=== PATIENT | female | born 1960 | race Caucasian/White ===

== ENCOUNTER 2024-07-23 15:18 | Emergency (ER) | payer MEDICAID, OTHER ==
[~2024-07-23] VITALS: Ht 175.3 cm; Wt 62.0 kg
[2024-07-23 15:30] VITALS: PULSE 76; RESP 18; O2SAT 98
--- NOTE | 2024-07-23 15:35 | ED.PDOC ---
History of Present Illness HPI Comments 64-year-old female brought by paramedics because of altered level of consciousness noticed by her significant other. Significant other last seen her normal 20 minutes prior to paramedics arrival. When paramedics arrived she was unconscious with pinpoint pupil. She was given intranasal Narcan for which she responded. Patient does have a history of ovarian cancer. She does not remember the event. She denies use of drugs. Other than ovarian she does have a history of hypotension asthma. Her blood pressure on arrival was 157/110. With a normal heart rate. Denies chest pain shortness a breath. She does state that she has headache confusion. Denies any other symptoms. Chief Complaint: ALOC Time Seen by MD: 15:24 Reviewed Notes: Nurses Notes, Medications, Allergies Allergies: Coded Allergies: Penicillins (Verified Allergy, Unknown, 07/23/24) Information Source: Patient, Emergency Med Personnel Mode of Arrival: EMS Severity: Moderate Timing: Minutes Duration: Since onset Past Medical History PAST MEDICAL HISTORY: Asthma, HTN Surgical History: Denies all surgeries ROLL INSPECTOR History: No Pertinent ROLL INSPECTOR History Social History Smoker: Non-Smoker Alcohol: Denies ETOH Use Drugs: Denies Drug Use Constitutional: denies: chills, diaphoresis, fatigue, fever, malaise, sweats, weakness, others EENTM: denies: blurred vision, double vision, ear bleeding, ear discharge, ear drainage, ear pain, ear ringing, eye pain, eye redness, hearing loss, mouth pain, mouth swelling, nasal discharge, nose bleeding, nose congestion, nose pain, photophobia, tearing, throat pain, throat swelling, voice changes, others Respiratory: denies: cough, hemoptysis, orthopnea, SOB at rest, shortness of breath, SOB with excertion, stridor, wheezing, others Cardiovascular: denies: chest pain, dizzy spells, diaphoresis, Dyspnea on exertion, edema, irregular heart beat, left arm pain, lightheadedness, palpitations, PND, syncope, others Gastrointestinal: denies: abdomen distended, abdominal pain, blood streaked bowels, constipated, diarrhea, dysphagia, difficulty swallowing, hematemesis, melena, nausea, poor appetite, poor fluid intake, rectal bleeding, rectal pain, vomiting, others Genitourinary: denies: abnormal vagina bleeding, burning, dyspareunia, dysuria, flank pain, frequency, hematuria, incontinence, pain, , vagina discharge, urgency, others Neurological: reports: headache; denies: dizziness, fainting, left sided numbness, left sided weakness, numbness, paresthesia, pre-existing deficit, right sided numbness, right sided weakness, seizure, speech problems, tingling, tremors, weakness, others Musculoskeletal: denies: back pain, gout, joint pain, joint swelling, muscle pain, muscle stiffness, neck pain, others Integumetry: denies: bruises, change in color, change in hair/nails, dryness, laceration, lesions, lumps, rash, wounds, others Allergic/Immunocompromised: denies: Difficulty Healing, Frequent Infections, Hives, Itching, others Hematologic/Lymphatic: denies: anemia, blood clots, easy bleeding, easy bruising, swollen glands, others Endocrine: denies: excessive hunger, excessive sweating, excessive thirst, excessive urination, flushing, intolerance to cold, intolerance to heat, unexplained weight gain, unexplained weight loss, others Psychiatric: denies: anxiety, bipolar disorder, depression, hopeless, panic disorder, schizophrenia, sleepless, suicidal, others Physical Exam General Appearance: Moderate Distress HEENT: Normal ENT Inspection, Pharynx Normal, TMs Normal Neck: Full Range of Motion, Non-Tender, Normal, Normal Inspection Respiratory: Chest Non-Tender, Lungs Clear, No Accessory Muscle Use, No Respiratory Distress, Normal Breath Sounds Cardiovascular: No Edema, No JVD, No Murmur, No Gallop, Normal Peripheral Pulses, Regular Rate/Rhythm Breast Exam: Deferred Gastrointestinal: No Organomegaly, Non Tender, No Pulsatile Mass, Normal Bowel Sounds, Soft Genitalia: Deferred Pelvic: Deferred Rectal: Deferred Extremities: Normal inspection, No pedal edema Musculoskeletal : Apperance: Normal Neurologic: Alert Cerebellar Function: NOT DONE Reflexes: NOT DONE Skin: Dry, Normal Color, Warm Peripheral Pulses: 3+ Radial (R), 3+ Radial (L) Lymphatic: No Adenopathy Was a procedure done? Was a procedure done?: No Differential Dx Considerations may include: Metabolic encephalopathy Electrolyte imbalance X-Ray, Labs, Meds, VS Vital Signs Date Time Temp Pulse Resp B/P (MAP) Pulse Ox O2 Delivery O2 Flow Rate FiO2 07/23/24 15:30 76 18 98 Room Air* 0 21 07/23/24 15:27 97.9 61 16 145/99 (114) 97 97.9 07/23/24 15:27 97.9 61 16 145/99 (114) 97 07/23/24 15:22 58 Lab Test 07/23/24 15:45 Range/Units White Blood Count 7.5 4.4-10.8 10^3/uL Red Blood Count 5.17 4.0-5.20 10^6/uL Hemoglobin 16.5 H 12.2-16.2 g/dL Hematocrit 47.8 H 36.0-46.0 % Mean Corpuscular Volume 92.4 80.0-100.0 fL Mean Corpuscular Hemoglobin 31.9 28.0-32.0 pg Mean Corpuscular Hemoglobin Concent 34.5 32.0-36.0 g/dL Red Cell Distribution Width 13.5 11.8-14.3 % Platelet Count 320 140-450 10^3/uL Mean Platelet Volume 7.9 6.9-10.8 fL Neutrophils (%) (Auto) 62.5 37.0-80.0 % Lymphocytes (%) (Auto) 26.6 10.0-50.0 % Monocytes (%) (Auto) 8.7 0.0-12.0 % Eosinophils (%) (Auto) 1.7 0.0-7.0 % Basophils (%) (Auto) 0.5 0.0-2.0 % Neutrophils # (Auto) 4.7 1.6-8.6 10 ^3/uL Lymphocytes # (Auto) 2.0 0.4-5.4 10 ^3/uL Monocytes # (Auto) 0.6 0-1.3 10 ^3/uL Eosinophils # (Auto) 0.1 0-0.8 10 ^3/uL Basophils # (Auto) 0 0-0.2 10 ^3/uL Nucleated Red Blood Cells 0.2 % Sodium Level 140 136-145 mmol/L Potassium Level 3.5 3.5-5.1 mmol/L Chloride Level 105 98-107 mmol/L Carbon Dioxide Level 28 20-31 mmol/L Anion Gap 7 5-15 Blood Urea Nitrogen 13 9-23 mg/dL Creatinine 0.78 0.550-1.02 mg/dL Glomerular Filtration Rate Calc 84 >90 mL/min BUN/Creatinine Ratio 16.7 10.0-20.0 Serum Glucose 135 H 74-106 mg/dL Calcium Level 10.0 8.7-10.4 mg/dL Troponin I High Sensitivity 365 *H </=34 ng/L Plasma/Serum Blood Alcohol 5.0 <10 mg/dL PROCEDURE(s): HWOCT - HEAD WITHOUT CONTRAST Impression: 1. Diffuse subarachnoid hemorrhage with intraventricular extension. 2. No evidence of herniation. Critical Result: Intracranial hemorrhage Findings discussed with NAHOMI CHILDRESS at 07/23/2024 04:48 PM, and acknowledged receipt and understanding of the findings. Patient alert. Slightly confused. Unable to express what really happened. Vitals stable. Blood pressure elevated. Was given clonidine. She denies use of drugs. Her pupils were pinpoint. Responded to Narcan. She does have arthritic changes of the hand. She has barrel shaped chest. Possibly will need MRI. Reviewed her history. Explained to the patient about treatment plan. Continue cardiac monitoring. EKG reviewed does not show any acute changes LVH. CT scan of the head reviewed shows subarachnoid hemorrhage. Time of 1ST Reevaluation: 15:32 Reevaluation 1ST: Unchanged Patient Education/Counseling: Diagnosis, Treatment, Prognosis Family Education/Counseling: No Family Present Departure 1 Departure Time of Disposition: 15:34 Impression: Primary Impression: Metabolic encephalopathy Additional Impressions: Hypertensive urgency Subarachnoid hemorrhage Disposition: 02 SHORT TERM HOSPITAL Admit to: Med Surg Condition: Guarded Critical Care Note Critical Care Time?: Yes (45 min-critical care time only) Stability Stability form required: No Heart Score Heart Score: Heart Score Response (Comments) Value History Slightly Suspicious 0 EKG Normal 0 Age >65 2 Risk Factors >3 or Hx ASHD 2 Troponin Normal limit 0 Total 4 I personally scribed for NAHOMI CHILDRESS MD ([email or web address]) on 07/23/24 at 16:56. Electronically submitted by Neal Angela ([email or web address]). NAHOMI CHILDRESS MD Jul 23, 2024 15:35
[2024-07-23 16:03] LABS: Basophils # (auto) 0 10 ^3/uL (0-0.2); Basophils % (auto) 0.5 % (0.0-2.0); Eosinophils # (auto) 0.1 10 ^3/uL (0-0.8); Eosinophils % (auto) 1.7 % (0.0-7.0); Hematocrit 47.8 % (36.0-46.0); Hemoglobin 16.5 g/dL (12.2-16.2); Lymphocytes % (auto) 26.6 % (10.0-50.0); Mean Corpuscular Hemoglobin 31.9 pg (28.0-32.0); Mean Corpuscular Hgb Conc. 34.5 g/dL (32.0-36.0); Mean Corpuscular Volume 92.4 fL (80.0-100.0); Monocytes # (auto) 0.6 10 ^3/uL (0-1.3); Monocytes % (auto) 8.7 % (0.0-12.0); Neutrophils # (auto) 4.7 10 ^3/uL (1.6-8.6); Neutrophils % (auto) 62.5 % (37.0-80.0); Nucleated Red Blood Cells % 0.2 %; Platelet Count (auto) 320 10^3/uL (140-450); Red Blood Cells 5.17 10^6/uL (4.0-5.20); Red Cell Distribution Width 13.5 % (11.8-14.3); White Blood Cell 7.5 10^3/uL (4.4-10.8)
[2024-07-23 16:27] LABS: Chloride 105 mmol/L (98-107); Potassium 3.5 mmol/L (3.5-5.1); Sodium 140 mmol/L (136-145)
[2024-07-23 16:28] LABS: Anion Gap 7 (5-15); Carbon Dioxide 28 mmol/L (20-31)
[2024-07-23 16:33] LABS: Glucose 135 mg/dL (74-106)
[2024-07-23 16:34] LABS: BUN/Creatinine Ratio 16.7 (10.0-20.0); Blood Urea Nitrogen 13 mg/dL (9-23)
--- NOTE | 2024-07-23 16:53 | DVH ---
Exam: CT HEAD WITHOUT CONTRAST History: altered Technique: [address] images through the posterior fossa and the supratentorial compart ment were acquired without contrast and imaged using soft tissue and bone algorithms. RADIATION DOSE: DLP 863.9 mGy.cm; CTDI vol 52.27 mGy. Comparison: None Findings: There is no evidence of acute large vessel infarct, mass effect, or midline shift. Diffuse subarachnoid hemorrhage with intraventricular extension. There is no significant cerebral atrophy. No significant calcification of the carotid siphons. The calvarium, orbits, paranasal sinuses, sella, middle ears, and mastoids are unremarkable. The superficial soft tissues are within normal limits. Impression: 1. Diffuse subarachnoid hemorrhage with intraventricular extension. 2. No evidence of herniation. Critical Result: Intracranial hemorrhage Findings discussed with NAHOMI CHILDRESS at 07/23/2024 04:48 PM, and acknowledged receipt and under standing of the findings.
[2024-07-23 17:30] LABS: Urine Bacteria FEW /hpf (None Seen); Urine Blood 2+ /uL (Negative); Urine Clarity Clear (Clear); Urine Color Light-Yellow (Yellow); Urine Mucus FEW (None Seen); Urine Protein, UAD TRACE (Negative); Urine Specific Gravity 1.014 (1.001-1.035); Urine Urobilinogen Normal (Negative); Urine WBC <1 /hpf (0 - 5)
[2024-07-23 17:34] LABS: Amphetamine Screen, Urine Pos (NEGATIVE); Barbiturate Scree,Urine Neg (NEGATIVE); Benzodiazephine Screen, Urine Neg (NEGATIVE); Cannabinoid Screen, Urine Neg (NEGATIVE); Cocaine Screen, Urine Neg (NEGATIVE); Opiate Scree,Urine Neg (NEGATIVE); Phencyclidine Screen, Urine Neg (NEGATIVE)
[2024-07-23] MEDS ORDERED: LABETALOL HCL 20 MG/4 ML VL IV ONE (17:45)
[2024-07-23 17:47] VITALS: BP 146/116; PULSE 74; RESP 18; TEMP 98.2; O2SAT 98
[2024-07-23] MEDS: LABETALOL HCL 20 MG/4 ML VL IV ONE ×2 (17:58→18:00)
[2024-07-23] MEDS: hydrALAZINE HCL 20 MG/ML VL IV ONE (18:00)
--- NOTE | 2024-07-24 09:39 | ECG ---
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
== END 2024-07-23 16:30 | disposition short-term general hospital (02) ==
LOC: EDUNIT# 15:18 → EDBD 15:18 → ER 15:30
DX: G93.41 Metabolic encephalopathy (principal); I16.0 Hypertensive urgency; I60.9 Nontraumatic subarachnoid hemorrhage, unspecified; I10 Essential (primary) hypertension; J45.909 Unspecified asthma, uncomplicated; Z88.0 Allergy status to penicillin; Z79.899 Other long term (current) drug therapy
CPT/HCPCS: 36415; 70450; 80048; 80307; 80320; 81001; 84484; 85025; 93005; 96374; 99291